=== PATIENT | female | born 1935 | race Caucasian/White ===

== ENCOUNTER 2018-01-30 11:46 | Emergency (ER) | payer MEDICARE ==
[~2018-01-30] VITALS: Ht 157.5 cm; Wt 70.0 kg
[2018-01-30 12:05] VITALS: BP 113/63; PULSE 70; RESP 16; TEMP 97.3; O2SAT 99
[2018-01-30] MEDS ORDERED: WARF-18 PO (12:24)
[2018-01-30] MEDS ORDERED: METO25TA3 PO (12:24)
[2018-01-30] MEDS ORDERED: ISOS60TA PO (12:24)
[2018-01-30] MEDS ORDERED: ATOR80TA45 PO (12:24)
[2018-01-30] MEDS ORDERED: FURO20TA PO (12:24)
[2018-01-30] MEDS ORDERED: ASPI-516 CHEW (12:24)
[2018-01-30] MEDS ORDERED: LOSA25TA PO (12:24)
[2018-01-30] MEDS ORDERED: TIZA2CAP3 PO (12:28)
[2018-01-30] MEDS ORDERED: MELO7.5T27 PO (12:49)
[2018-01-30] MEDS ORDERED: ORPH100T2 PO (12:49)
--- NOTE | 2018-01-30 12:54 | PD ---
HPI Chief Complaint: Pain: Acute or Chronic Time Seen by Provider: 12:38 Travel History International Travel<30 days: No Contact w/Intl Traveler<30days: No Traveled to known affect area: No History of Present Illness HPI 82-year-old female presents emergency department with ongoing upper back and shoulder pain which is been ongoing since June of last year. Patient had no specific injury at that time. She has been seen by her primary care physician, and treated with muscle relaxants, tramadol, and trigger point injections. Patient underwent a CT scan yesterday, and her pain continues which is why she comes in today. She has a CT scan results with her. She denies fever, chills, weakness, numbness, tingling, or other symptoms. She has no shortness of breath, nausea, vomiting, or other constitutional symptoms. There is no rash. Patient states she is unable to take the tramadol as it makes her feel sick. Pain is currently 9 out of 10 this morning. It is worse with movement and palpation is localized to the left upper back and between the shoulder blades. She is allergic to sulfa. PFSH Past Medical History Hx Anticoagulant Therapy: Yes Atrial Fibrillation: Yes Heart Rhythm Problems: Yes Cancer: Yes (SQUAMOUS CELL - HEAD) Cardiovascular Problems: Yes High Cholesterol: Yes Congestive Heart Failure: Yes Cerebrovascular Accident: Yes Diminished Hearing: No Hypertension: Yes Pneumonia: Yes ?: Not : 4 Para: 4 Past Surgical History Appendectomy: Yes Cardiac Surgery: Yes (PACER/DEFIB, SEVEN STENTS) Coronary Stent: Yes (X 7) Hysterectomy: Yes Pacemaker: Yes Other Surgery: Yes (MULTIPLE LIDOCAINE INJECTIONS) Social History Alcohol Use: Yes (OCCASIONAL WINE) Tobacco Use: No Substance Use: No Allergies-Medications (Allergen,Severity, Reaction): Coded Allergies: Sulfa (Sulfonamide Antibiotics) (Verified Allergy, Severe, Rash, 01/30/18) Reported Meds & Prescriptions Reported Meds & Active Scripts Active Reported Tizanidine (Tizanidine HCl) 2 Mg Cap 2 Mg PO BID PRN Losartan (Losartan Potassium) 25 Mg Tab 25 Mg PO HS Atorvastatin (Atorvastatin Calcium) 80 Mg Tab 80 Mg PO HS Metoprolol Tartrate 25 Mg Tab 25 Mg PO DAILY Warfarin 2.5 Mg Tab 2.5 Mg PO DAILY Aspirin 81 Mg Chew 81 Mg CHEW DAILY Isosorbide Mononitrate ER (Isosorbide Mononitrate) 60 Mg Tab 60 Mg PO DAILY Furosemide 20 Mg Tab 20 Mg PO BID Review of Systems Except as stated in HPI: all other systems reviewed are Neg General / Constitutional: No: Fever Eyes: No: Visual changes HENT: No: Headaches Cardiovascular: No: Chest Pain or Discomfort Respiratory: No: Shortness of Breath Gastrointestinal: No: Abdominal Pain Genitourinary: No: Dysuria Musculoskeletal: Positive: Myalgias, Limited ROM, Pain Skin: No Rash Neurologic: No: Weakness Psychiatric: No: Depression Endocrine: No: Polydipsia Hematologic/Lymphatic: No: Easy Bruising Physical Exam Narrative GENERAL: Patient appears in mild to moderate distress. SKIN: Warm and dry. Normal color. Normal turgor. No rash. HEAD: Atraumatic. Normocephalic. EYES: Pupils equal and round. No scleral icterus. No injection or drainage. ENT: No nasal bleeding or discharge. Mucous membranes pink and moist. Pharynx is clear. Airways patent. NECK: Trachea midline. No bony tenderness or step-off. Range of motion is full. CARDIOVASCULAR: Regular rate and rhythm. RESPIRATORY: No accessory muscle use. Clear to auscultation. Breath sounds equal bilaterally. GASTROINTESTINAL: Abdomen soft, non-tender, nondistended. Hepatic and splenic margins not palpable. MUSCULOSKELETAL: Extremities without clubbing, cyanosis, or edema. No obvious deformities. Patient has no bony tenderness to palpation along the thoracic or lumbar spine. Patient has soft tissue tenderness along the left upper trapezius and subscapularis, reproducing her pain. Range of motion is full however limited by pain. No decrease in strength. No loss of function. NEUROLOGICAL: Awake and alert. No obvious cranial nerve deficits. Motor grossly within normal limits. Five out of 5 muscle strength in the arms and legs. Normal speech. PSYCHIATRIC: Appropriate mood and affect; insight and judgment normal. Data Data Last Documented VS Vital Signs Date Time Temp Pulse Resp B/P (MAP) Pulse Ox O2 Delivery O2 Flow Rate FiO2 01/30/18 12:05 97.3 70 16 113/63 (80) 99 Orders Orders Ketorolac Inj (Toradol Inj) (01/30/18 13:00) Orphenadrine Inj (Norflex Inj) (01/30/18 13:00) MDM Medical Decision Making Medical Screen Exam Complete: Yes Emergency Medical Condition: Yes Medical Record Reviewed: Yes Differential Diagnosis Chronic upper back pain. Muscle spasm. Scoliosis. Narrative Course CT scan results are reviewed showing slight scoliosis and old wedge compression fracture of T7. No other acute findings are noted. Patient is given Norflex 60 mg IM as well as 30 mg Toradol IM. Patient will be continued on Norflex 100 mg twice daily #60. Patient started on meloxicam 7.5 mg twice daily #60. Recommend the patient use heat frequently and follow-up with physical therapy for further treatment. Patient can return to emergency department with worsening symptoms if necessary. Diagnosis Primary Impression: Chronic upper back pain Additional Impression: Muscle spasm Patient Instructions: General Instructions, Muscle Spasm (ED) Additional Instructions: CT scan results are reviewed showing slight scoliosis and old wedge compression fracture of T7. No other acute findings are noted. Patient is given Norflex 60 mg IM as well as 30 mg Toradol IM. Patient will be continued on Norflex 100 mg twice daily #60. Patient started on meloxicam 7.5 mg twice daily #60. Recommend the patient use heat frequently and follow-up with physical therapy for further treatment. Patient can return to emergency department with worsening symptoms if necessary. Med/Other Pt SpecificInfo: Prescription(s) given Scripts Orphenadrine ER 12 HR (Orphenadrine CR) 100 Mg Tab 100 MG PO Q12HR for Muscle Spasm, #60 TAB 0 Refills Prov: Abimael Bowers MD 01/30/18 Meloxicam (Meloxicam) 7.5 Mg Tab 7.5 MG PO BIDAC for Arthritis Pain, #60 TAB 0 Refills Prov: Abimael Bowers MD 01/30/18 Disposition: 01 DISCHARGE HOME Condition: Stable eDnis Lawrence Jan 30, 2018 12:54
[2018-01-30] MEDS ORDERED: ORPHENADRINE INJ 60 MG/2 ML AMP IM ONE (13:00)
[2018-01-30] MEDS ORDERED: KETOROLAC TROMETHAMINE 60 MG/2 ML (IM) VIAL IM ONE (13:00)
== END 2018-01-30 13:51 | disposition home or self-care (01) ==
LOC: NEPD 11:46
DX: M54.89 Other dorsalgia (principal); M62.838 Other muscle spasm; E78.00 Pure hypercholesterolemia, unspecified; I11.0 Hypertensive heart disease with heart failure; I50.9 Heart failure, unspecified; I48.91 Unspecified atrial fibrillation; Z79.01 Long term (current) use of anticoagulants
CPT/HCPCS: 96372; 99283; J1885; J2360